=== PATIENT | female | born 1975 | race African-American/Black ===

== ENCOUNTER 2016-09-28 14:54 | Emergency (ER) | payer OTHER ==
[~2016-09-28] VITALS: Ht 170.2 cm; Wt 158.8 kg
[~2016-09-28 14:54] MED LIST: ASPIR 8181 MG PO; B COMPLEX1 EAC1 PO; CINNAMON500 MG PO; COLACE100 MG PO; CYMBALTA30 MG PO; CYMBALTA60 MG PO; GLUCOPHAGE1000 MG PO; GORDON'S VITE A75 GM TP; HUMALOG100 UNIT/1 SUBQ; HYDROCODONE-AP1 EAC6 PO; IRBESARTAN300 MG PO; LANTUS; LANTUS SUBQ; LANTUS100 UNIT/M SUBQ; LASIX; LEVAQUIN 500 M500 M2 PO; LEVEMIR100 UNIT/1 SUBQ; METFORMIN HCL500 MG PO; MIRALAX17 GM PO; NORCO 5-325 TA1 EACH PO; NORFLEX100 MG; NORFLEX100 MG PO; NORVASC10 MG PO; NOVOLOG100 UNIT/1 SUBQ; PIOGLITAZONE15 MG; PREDNISONE 20 M20 M1 PO; PRILOSEC20 MG PO; PROVENTIL HFA6.7 G1 INH; TOPROL XL50 MG PO; VITAMIN D 5050000 I1 PO; WELLBUTRIN XL300 MG PO
[2016-09-28] MEDS ORDERED: NEURONTIN600 MG PO (15:17)
[2016-09-28] MEDS ORDERED: TRESIBA FL200 UNIT/1 SQ (15:19)
[2016-09-28] MEDS ORDERED: LASIX 40 MG TAB40 M2 PO (15:20)
[2016-09-28] MEDS ORDERED: POTASSIUM20 PO (15:21)
[2016-09-28] MEDS ORDERED: VIBERZI100 MG PO (15:22)
[2016-09-28] MEDS ORDERED: PROTONIX40 M1 PO (15:22)
[2016-09-28] MEDS ORDERED: LORZONE750 MG PO (15:24)
[2016-09-28] MEDS ORDERED: NORFLEX100 MG PO (15:39)
[2016-09-28] MEDS ORDERED: NAPROSYN500 MG PO (15:39)
== END 2016-09-28 16:03 | disposition home or self-care (01) ==
LOC: ER 14:54
DX: S46.912A Strain of unspecified muscle, fascia and tendon at shoulder and upper arm level, left arm, initial encounter (principal); Z90.710 Acquired absence of both cervix and uterus; Z98.890 Other specified postprocedural states; Z88.1 Allergy status to other antibiotic agents; Z91.040 Latex allergy status; Z88.8 Allergy status to other drugs, medicaments and biological substances; V89.2XXA Person injured in unspecified motor-vehicle accident, traffic, initial encounter; Y93.I9 Activity, other involving external motion; Y92.415 Exit ramp or entrance ramp of street or highway as the place of occurrence of the external cause; Y99.8 Other external cause status

== ENCOUNTER → 2017-01-24 | Outpatient (CLI) | payer OTHER ==
[~2017-01-24] MED LIST changes: +LASIX 40 MG TAB40 M2 PO; +LORZONE750 MG PO; +NAPROSYN500 MG PO; +NEURONTIN600 MG PO; +POTASSIUM20 PO; +PROTONIX40 M1 PO; +TRESIBA FL200 UNIT/1 SQ; +VIBERZI100 MG PO
== END ==
LOC: RAD 15:26
DX: R06.02 Shortness of breath (principal); R06.09 Other forms of dyspnea

== ENCOUNTER 2017-04-14 09:14 | Inpatient (IN) | payer OTHER ==
--- NOTE | ~2017-04-14 | P ---
[facility] [place] [place] [address] PROCEDURE REPORT Name: NAIN SCHMIDT Room #: 209-P [facility] IN M.R.#: [id number] Admission: 04/14/17 Attend Phys: Escobar Elder DO Discharge: 04/15/17 Date of : 71 Report #: [id number] THIS REPORT FOR: //name// CC: Escobar Baigen [facility] DATE OF SERVICE: 04/15/2017 PROCEDURE PERFORMED: Flexible sigmoidoscopy. HISTORY OF PRESENT ILLNESS: The patient is a 41-year-old female with recent bright red blood per rectum apparently had a colonoscopy a year ago that was negative. She does have irritable bowel syndrome, diarrhea dependent and takes Viberzi, which seems to be helpful. Plan is for a flexible sigmoidoscopy. DESCRIPTION OF PROCEDURE: The risks and benefits of the procedure were explained to the patient, those risks including but not limited to bleeding, perforation and the risk of sedation. She understood these risks and gave informed consent. Sedation was given using ketamine and propofol per anesthesia. Next, a digital rectal exam was initially performed, which was normal. Next, using a standard Precoginon colonoscope, the scope was placed in the patient's anus and advanced under direct vision to the transverse colon. The overall prep was excellent. The transverse, descending and sigmoid colon were all normal. Because of the patient's history of diarrhea, random biopsies were obtained to rule out the possibility of microscopic colitis. The rectal mucosa was normal. On retroflexion, a single internal hemorrhoid, nonbleeding was noted. Close examination of the anal canal showed a small anal fissure. No active bleeding at this time. The scope was then withdrawn and the procedure terminated. The patient tolerated the procedure well. IMPRESSION: 1. Small anal fissure likely source of recent bright red blood per rectum. 2. Internal hemorrhoids. 3. Otherwise, normal flexible sigmoidoscopy. RECOMMENDATIONS: 1. High fiber diet. 2. Analpram 2.5% b.i.d. for 2 weeks and then on a p.r.n. basis. Thank you for allowing me to participate in her care. By: 1127 18 Leland Grey MD /ivonne
--- NOTE | ~2017-04-14 | S ---
[facility] [place] [address] SURGICAL PATH RPT PROCEDURE Name: NAIN WARD MIHAELA Room #: 209-P DIS IN M.R.#: [id number] Admission: 04/14/17 Date of : 71 Discharge: 04/15/17 Report #: [id number] Path Case #: [id number] PATHOLOGY REPORT COLLECTION DATE: 04/15/2017 RECEIVED DATE: 04/15/2017 SUBMITTING PHYS: Dr. Leland Grey OTHER PHYS: Dr. Escobar Parker SPECIMEN(S) RECEIVED: A.Random colon bx to R/O microscopic colitis * * * * * * * * * * * * FINAL DIAGNOSIS: Large intestinal mucosa, random, rule out microscopic colitis, endoscopic biopsy: - Mild to moderate active colitis involving all fragments sampled. - Negative for dysplasia. COMMENT: Examination shows a markedly expanded lamina propria with a mixed inflammatory infiltrate. There is surface epithelial acute inflammation, cryptitis, crypt abscess formation as well as a rare focus of ulceration. All fragments sampled show a similar degree intensity of inflammation. Architectural abnormalities are not obvious. There are no viral inclusions, parasitic organisms, or well-formed granulomata identified. Overall findings may be suggestive of an acute ongoing colitis, infectious-type of colitis, medication induced colitis, acute diverticulitis, as well as early inflammatory bowel disease. There is no dysplasia or malignancy present. Please correlate clinically. (IUV:elizabeth; 04/18/2017) PATHOLOGIST: Amaya Esparza M.D. REPORT ELECTRONICALLY SIGNED BY: Amaya Esparza M.D. DATE/TIME: 04/18/2017 14:47 * * * * * * * * * * * * GROSS PATHOLOGY: Received in formalin labeled "Nain Ward, random BX of colon to r/o microscopic colitis," are 4 segments of ely soft tissue measuring 1.8 x 0.6 x 0.3 cm in aggregate dimensions and ranging from 0.3 to 0.8 cm in maximum dimension. The specimen is submitted entirely in cassette A1. (TSD; 04/15/2017) [address] [address] [place] [address] SURGICAL PATH RPT PROCEDURE Name: NAIN WARD MIHAELA Room #: 209-P DIS IN M.R.#: [id number] Admission: 04/14/17 Date of : 71 Discharge: 04/15/17 Report #: [id number] Path Case #: [id number] CLINICAL HISTORY: GI rectal bleed INITIAL CPT CODE(S): A; 01982 Professional services performed by [facility] at [facility] [address] [place] [address] Technical services performed by [facility] at [address] [place] [address], [facility] [address] [address]. [facility] [address] [address] PHONE: [phone] DIRECTOR: Casa Paredes M.D. * * * END OF REPORT * * *
--- NOTE | ~2017-04-14 | EKG ---
[address] [address] ELECTROCARDIOGRAM REPORT Name: NAIN SCHMIDT Room #: 209- ADM IN M.R.#: [id number] Admission: 04/14/17 Attend Phys: Justen Mclaughlin Discharge: Date of : 71 Report #: [id number] THIS REPORT FOR: //name// [facility] Test Date: 2017-04-14 Test Time: 10:48:20 Pat Name: NAIN SCHMIDT Department: Room: 209 Gender: F Hair Assistant: Norma QUINONEZ : 1975 Requested By: Roxy Alcantar Order Number: [id number] MD: Jai Jeffers Measurements Intervals [place] Rate: 77 P: 46 DE: 152 QRS: 16 QRSD: 89 T: 58 QT: 391 QTc: 443 Interpretive Statements Sinus rhythm Borderline T wave abnormalities Compared to ECG 09/22/2014 13:18:49 No significant changes Electronically Signed On 04-14-2017 17:11:43 TOE STAPLER by Jai Jeffers [email or web address] <ELECTRONICALLY SIGNED> By: Jai Jeffers MD, [facility] 04/14/17 1711 1048 1048 Jai Jeffers MD, [facility] /EPI
[2017-04-14 09:30] VITALS: BP 161/113
[2017-04-14 10:37] LABS: ABSOLUTE NEUTROPHILS 5.3 thou/uL (1.4-8.2); BASOPHILS 0.2 % (0.0-2.0); EOSINOPHILS 1.1 % (0.0-3.0); HEMATOCRIT 32.2 % (37.0-47.0); HEMOGLOBIN 10.1 gm/dL (12.0-15.0); LYMPHOCYTES 18.4 % (24.0-44.0); MCH 25.1 pg (26.0-34.0); MCHC 31.6 g/dL (28.0-37.0); MCV 79.5 fL (80.0-100.0); MONOCYTES 6.8 % (1.0-8.0); PLATELET COUNT 328 thou/uL (150-400); POLYS 73.5 % (36.0-66.0); RBC 4.05 mil/uL (4.20-5.00); RDW 17.5 % (10.5-14.5); WBC 7.3 thou/uL (4.0-11.0)
[2017-04-14 10:38] LABS: MANUAL DIFF NO
[2017-04-14 10:51] LABS: CALCIUM 9.1 mg/dL (8.5-10.1); CREATININE 0.9 mg/dL (0.6-1.0); POTASSIUM 3.8 mmol/L (3.5-5.1)
[2017-04-14 10:53] LABS: PROTIME 9.3 Seconds (9.3-11.4)
[2017-04-14 10:57] LABS: ALBUMIN 2.7 g/dL (3.4-5.0); MAGNESIUM 1.8 mg/dL (1.8-2.4); TOTAL BILIRUBIN 0.3 mg/dL (<0.1-1.0); TOTAL PROTEIN 7.2 g/dL (6.4-8.2)
[2017-04-14 12:00] VITALS: BP 153/93
[2017-04-14 16:00] VITALS: BP 153/90
[2017-04-14 19:19] VITALS: BP 16/108
[2017-04-14 20:05] LABS: URINE BILIRUBIN NEGATIVE (Negative); URINE BLOOD TRACE (Negative); URINE COLOR YELLOW; URINE GLUCOSE-RANDOM* NEGATIVE (Negative); URINE KETONES NEGATIVE (Negative); URINE NITRITE NEGATIVE (Negative); URINE PROTEIN (DIPSTICK) NEGATIVE (Negative); URINE UROBILINOGEN 0.2 E.U./dl (0.2-1.0)
[2017-04-15 00:35] VITALS: BP 156/96
[2017-04-15 04:03] LABS: ABSOLUTE NEUTROPHILS 2.7 thou/uL (1.4-8.2); EOSINOPHILS 4.3 % (0.0-3.0); HEMATOCRIT 30.6 % (37.0-47.0); HEMOGLOBIN 9.7 gm/dL (12.0-15.0); MCH 25.2 pg (26.0-34.0); MCHC 31.6 g/dL (28.0-37.0); MCV 79.8 fL (80.0-100.0); MONOCYTES 9.4 % (1.0-8.0); PLATELET COUNT 305 thou/uL (150-400); POLYS 51.3 % (36.0-66.0); RBC 3.83 mil/uL (4.20-5.00); RDW 18.1 % (10.5-14.5); WBC 5.3 thou/uL (4.0-11.0)
[2017-04-15 04:07] LABS: MANUAL DIFF NO
[2017-04-15 04:26] LABS: CALCIUM 8.9 mg/dL (8.5-10.1); CREATININE 0.9 mg/dL (0.6-1.0); MAGNESIUM 1.7 mg/dL (1.8-2.4); POTASSIUM 3.7 mmol/L (3.5-5.1)
[2017-04-15 04:30] VITALS: BP 141/83
[2017-04-15 07:42] VITALS: BP 174/105
[2017-04-15 12:10] VITALS: BP 152/102
[2017-04-15 13:36] VITALS: BP 174/105
== END 2017-04-15 14:08 | disposition home or self-care (01) | DRG 394 ==
LOC: 2N 09:14
PROVIDERS: Nurse Practitioner
PROC: 0DBE8ZX Excision of Large Intestine, Via Natural or Artificial Opening Endoscopic, Diagnostic (ICD-10-PCS; principal; 2017-04-15)
DX: K60.2 Anal fissure, unspecified (principal); K92.2 Gastrointestinal hemorrhage, unspecified; I10 Essential (primary) hypertension; E11.9 Type 2 diabetes mellitus without complications; K58.9 Irritable bowel syndrome, unspecified; E66.01 Morbid (severe) obesity due to excess calories; I25.10 Atherosclerotic heart disease of native coronary artery without angina pectoris; E78.5 Hyperlipidemia, unspecified; K64.8 Other hemorrhoids; Z88.1 Allergy status to other antibiotic agents; Z88.8 Allergy status to other drugs, medicaments and biological substances; Z90.710 Acquired absence of both cervix and uterus; Z91.040 Latex allergy status
CPT/HCPCS: 10797

== ENCOUNTER → 2017-06-01 | Outpatient (CLI) | payer OTHER ==
[~2017-06-01] MED LIST changes: +AMITRIPTYLINE H25 M2 PO; +ANUSOL-HC25 MG RECTAL; +CELEXA20 MG PO; +COMBIVENT RESPIM4 GM INH; +DULERA 100 MCG/13 GM INH; +ERGOCALCIF50000 UNIT PO; +FLAX SEED OIL1000 MG PO; +FLONASE 0.05%50 MCG NASAL; +HYDRALAZINE 2525 MG PO; +HYDROXYZINE HCL25 M1 PO; +IBUPROFEN 600600 M1 PO; +IMITREX100 MG PO; +MACROBID 100 M100 M1 PO; +METHADONE HCL 110 M1 PO; +NEURONTIN 300300 M1 PO; +SINGULAIR 10 MG10 M1 PO; +TRESIBA FL200 UNIT/1 SUBQ; +UNICOMPLEX M TA1 TA1 PO; +VICTOZA0.6 MG/0.1 SUBQ; +VITAMIN D2000 UNIT PO; +XANAX 0.5 MG0.5 MG PO; +ZANAFLEX4 MG PO
--- NOTE | ~2017-06-01 | 2DMMODE ---
[facility] [place] [address] 2 D/M-MODE ECHOCARDIOGRAM Name: NAIN SCHMIDTLENE Room #: REG CL [facility]#: [id number] Admission: 06/01/17 Attend Phys: Porfirio Choudhary Discharge: Date of : 71 Date of Service: 06/01/17 1706 Report #: [id number] THIS REPORT FOR: //name// APPROVED REPORT Study performed: 06/01/2017 14:17:50 EXAM: Comprehensive 2D, Doppler, and color-flow Echocardiogram Patient Location: Out-Patient Room #: Echo lab Status: routine BSA: 2.63 HR: 80 bpm BP: 162/94 mmHg Other Information Study Quality: Poor Technically limited study due to body habitus, inability to position patient, no IV access obtainable to use Optison.. Indications Dyspnea Hypertension/HDD Aortic Valve AoV Peak Bret.: 1.75 m/s AO Peak Gr.: 12.25 mmHg LVOT Max P.88 mmHg LVOT Max V: 0.98 m/s Mitral Valve E/A Ratio: 0.9 MV Decel. Time: 241.51 ms MV E Max Bret.: 0.82 m/s MV A Bret.: 0.96 m/s MV PHT: 70.04 ms IVRT: 110.73 ms Pulmonary Valve PV Peak Bret.: 0.84 m/s PV Peak Gr.: 2.79 mmHg Pulmonary Vein P Vein S: 0.53 m/s P Vein A: 0.30 m/s P Vein D: 0.32 m/s P Vein A Dur.: 115.3 msec P Vein S/D Ratio: 1.66 [facility] [place] [address] 2 D/M-MODE ECHOCARDIOGRAM Name: NAIN SCHMIDT MIHAELA Room #: REG [facility]#: [id number] Admission: 06/01/17 Attend Phys: Porfirio Choudhary Discharge: Date of : 71 Date of Service: 06/01/17 1706 Report #: [id number] Left Ventricle Left ventricle is grossly normal size. Regional wall motion abnormalities cannot be excluded. The overall left ventricular systolic function appears normal. LVEF is 55-60%. Grade I - abnormal relaxation pattern. Right Ventricle Right ventricle is not well visualized. Atria The left atrium size is normal. The right atrium size is normal. Aortic Valve Aortic valve is not well visualized. No aortic regurgitation is present. There is no aortic valvular stenosis. Mitral Valve Mitral valve is not well visualized. There is no mitral valve regurgitation noted. No evidence of mitral valve stenosis. Tricuspid Valve Tricuspid valve is not well visualized. There is no tricuspid valve regurgitation noted. Pulmonic Valve The pulmonary valve is normal in structure. There is no pulmonic valvular regurgitation. Great Vessels The aortic root is normal in size. The inferior vena cava is not visualized. Pericardium There is no pericardial effusion. <Conclusion> Very limited study The overall left ventricular systolic function appears normal. Regional wall motion abnormalities cannot be excluded. LVEF 55-60%. Grade I diastolic dysfunction Aortic valve is not well visualized. No aortic regurgitation or stenosis Mitral valve is not well visualized. No mitral valve regurgitation [facility] [address] 2 D/M-MODE ECHOCARDIOGRAM Name: NAIN SCHMIDT MIHAELA Room #: REG [facility]#: [id number] Admission: 06/01/17 Attend Phys: Porfirio Choudhary Discharge: Date of : 71 Date of Service: 06/01/171705 Report #: [id number] noted. There is no pericardial effusion. <ELECTRONICALLY SIGNED> By: Jai Jeffers MD, FACC 06/01/171705 05 05 Jai Jeffers MD, FACC /INF
== END ==
LOC: CV 11:06
DX: I10 Essential (primary) hypertension (principal)

== ENCOUNTER → 2017-06-04 | Outpatient (CLI) | payer OTHER | LOC: SLEEPLAB 05-24 10:02 | DX: G47.33 Obstructive sleep apnea (adult) (pediatric) (principal) ==

== ENCOUNTER → 2017-06-10 | Outpatient (CLI) | payer OTHER ==
[2017-06-10 13:09] LABS: HEMATOCRIT 34.8 % (37.0-47.0); HEMOGLOBIN 11.3 gm/dL (12.0-15.0); MCH 25.1 pg (26.0-34.0); MCHC 32.5 g/dL (28.0-37.0); MCV 77.4 fL (80.0-100.0); RBC 4.5 mil/uL (4.20-5.00); RDW 18.5 % (10.5-14.5); WBC 8.2 thou/uL (4.0-11.0)
[2017-06-10 13:19] LABS: CREATININE 0.8 mg/dL (0.6-1.0)
== END ==
LOC: CAT 12:37
PROVIDERS: Neuromusculoskeletal Medicine & OMM
DX: I26.99 Other pulmonary embolism without acute cor pulmonale (principal); G47.33 Obstructive sleep apnea (adult) (pediatric); J45.40 Moderate persistent asthma, uncomplicated; R91.1 Solitary pulmonary nodule; E78.5 Hyperlipidemia, unspecified; I10 Essential (primary) hypertension; E11.40 Type 2 diabetes mellitus with diabetic neuropathy, unspecified; Z98.890 Other specified postprocedural states; Z90.710 Acquired absence of both cervix and uterus

== ENCOUNTER → 2017-06-21 | Outpatient (CLI) | payer OTHER | LOC: ULTRA 14:52 | DX: I82.622 Acute embolism and thrombosis of deep veins of left upper extremity (principal); Z87.828 Personal history of other (healed) physical injury and trauma ==

== ENCOUNTER 2017-06-30 21:04 | Emergency (ER) | payer OTHER ==
[~2017-06-30] VITALS: Ht 170.2 cm; Wt 167.8 kg
[~2017-06-30 21:04] MED LIST changes: -AMITRIPTYLINE H25 M2 PO; -ANUSOL-HC25 MG RECTAL; -CELEXA20 MG PO; -COMBIVENT RESPIM4 GM INH; -DULERA 100 MCG/13 GM INH; -ERGOCALCIF50000 UNIT PO; -FLAX SEED OIL1000 MG PO; -FLONASE 0.05%50 MCG NASAL; -HYDRALAZINE 2525 MG PO; -HYDROXYZINE HCL25 M1 PO; -IBUPROFEN 600600 M1 PO; -IMITREX100 MG PO; -MACROBID 100 M100 M1 PO; -METHADONE HCL 110 M1 PO; -NEURONTIN 300300 M1 PO; -SINGULAIR 10 MG10 M1 PO; -TRESIBA FL200 UNIT/1 SUBQ; -UNICOMPLEX M TA1 TA1 PO; -VICTOZA0.6 MG/0.1 SUBQ; -VITAMIN D2000 UNIT PO; -XANAX 0.5 MG0.5 MG PO; -ZANAFLEX4 MG PO
[2017-06-30 21:14] VITALS: BP 172/97
[2017-06-30] MEDS ORDERED: NEURONTIN 300300 M1 PO (21:26)
[2017-06-30] MEDS ORDERED: VITAMIN D2000 UNIT PO (21:26)
[2017-06-30] MEDS ORDERED: ERGOCALCIF50000 UNIT PO (21:26)
[2017-06-30] MEDS ORDERED: TRESIBA FL200 UNIT/1 SUBQ (21:28)
[2017-06-30 21:34] LABS: URINE BILIRUBIN NEGATIVE (Negative); URINE BLOOD NEGATIVE (Negative); URINE CLARITY SL CLOUDY; URINE COLOR YELLOW; URINE GLUCOSE-RANDOM* NEGATIVE (Negative); URINE KETONES TRACE (Negative); URINE LEUKOCYTES-REFLEX TRACE (Negative); URINE NITRITE-REFLEX NEGATIVE (Negative); URINE PROTEIN (DIPSTICK) NEGATIVE (Negative); URINE SPECIFIC GRAVITY >= 1.030 (1.005-1.035); URINE UROBILINOGEN 0.2 E.U./dl (0.2-1.0)
[2017-06-30] MEDS ORDERED: ANUSOL-HC25 MG RECTAL (23:22)
[2017-06-30] MEDS ORDERED: MACROBID 100 M100 M1 PO (23:22)
[2018-03-01] MEDS ORDERED: FLAX SEED OIL1000 MG PO (15:20)
[2018-03-01] MEDS ORDERED: FLONASE 0.05%50 MCG NASAL (15:21)
[2018-03-01] MEDS ORDERED: VICTOZA0.6 MG/0.1 SUBQ (15:24)
[2018-03-01] MEDS ORDERED: SINGULAIR 10 MG10 M1 PO (15:30)
[2018-03-01] MEDS ORDERED: DULERA 100 MCG/13 GM INH (15:30)
[2018-03-01] MEDS ORDERED: IMITREX100 MG PO (15:32)
[2018-03-01] MEDS ORDERED: UNICOMPLEX M TA1 TA1 PO (15:32)
[2018-03-01] MEDS ORDERED: ZANAFLEX4 MG PO (15:33)
[2018-03-01] MEDS ORDERED: HYDRALAZINE 2525 MG PO (15:34)
[2018-03-01] MEDS ORDERED: XANAX 0.5 MG0.5 MG PO (15:34)
[2018-03-01] MEDS ORDERED: HYDROXYZINE HCL25 M1 PO (15:35)
[2018-03-01] MEDS ORDERED: CELEXA20 MG PO (15:37)
[2018-03-01] MEDS ORDERED: AMITRIPTYLINE H25 M2 PO (15:42)
[2018-03-01] MEDS ORDERED: METHADONE HCL 110 M1 PO (15:42)
[2018-03-01] MEDS ORDERED: COMBIVENT RESPIM4 GM INH (15:47)
== END 2017-06-30 23:25 | disposition home or self-care (01) ==
LOC: ER 21:04
PROVIDERS: Physician Assistant
DX: K60.2 Anal fissure, unspecified (principal); N39.0 Urinary tract infection, site not specified; Z90.710 Acquired absence of both cervix and uterus; Z88.1 Allergy status to other antibiotic agents; Z88.8 Allergy status to other drugs, medicaments and biological substances; Z91.040 Latex allergy status

== ENCOUNTER → 2017-10-26 | Outpatient (CLI) | payer OTHER ==
[~2017-10-26] MED LIST changes: +ANUSOL-HC25 MG RECTAL; +ERGOCALCIF50000 UNIT PO; +MACROBID 100 M100 M1 PO; +NEURONTIN 300300 M1 PO; +TRESIBA FL200 UNIT/1 SUBQ; +VITAMIN D2000 UNIT PO
== END ==
LOC: ULTRA 13:56
DX: M79.601 Pain in right arm (principal); M79.89 Other specified soft tissue disorders

== ENCOUNTER 2017-11-14 08:34 | Emergency (ER) | payer OTHER ==
[~2017-11-14] VITALS: Ht 170.2 cm; Wt 165.6 kg
--- NOTE | ~2017-11-14 | EKG ---
[address] [address] [facility] [facility] [place] [place] [address] ELECTROCARDIOGRAM REPORT Name: NAIN SCHMIDT Room #: DEP [facility]#: [id number] Admission: 11/14/17 Attend Phys: Discharge: 11/14/17 Date of : 71 Report #: [id number] THIS REPORT FOR: //name// [facility] ED Test Date: 2017-11-14 Test Time: 08:45:28 Pat Name: NAIN SCHMIDT Department: Room: Gender: F Manager Body: KF : 1975 Requested By: Ry Onofre Order Number: [id number] MD: Jai Jeffers Measurements Intervals [place] Rate: 81 P: 65 WI: 154 QRS: -1 QRSD: 90 T: 45 QT: 409 QTc: 475 Interpretive Statements Sinus rhythm Borderline T wave abnormalities Baseline wander in lead(s) V1 Compared to ECG 04/14/2017 10:48:20 No significant changes Electronically Signed On 11-15-2017 14:04:54 CDT by Jai Jeffers [email or web address] <ELECTRONICALLY SIGNED> By: Jai Jeffers MD, [facility] 11/15/17 1404 4 Jai Jeffers MD, [facility] /EPI
[2017-11-14 09:39] LABS: ABSOLUTE NEUTROPHILS 4.9 thou/uL (1.4-8.2); BASOPHILS 0.6 % (0.0-2.0); EOSINOPHILS 2.1 % (0.0-3.0); HEMATOCRIT 34.9 % (37.0-47.0); HEMOGLOBIN 11.1 gm/dL (12.0-15.0); LYMPHOCYTES 20.9 % (24.0-44.0); MCH 25.3 pg (26.0-34.0); MCHC 31.7 g/dL (28.0-37.0); MCV 79.7 fL (80.0-100.0); PLATELET COUNT 379 thou/uL (150-400); POLYS 69.4 % (36.0-66.0); RBC 4.38 mil/uL (4.20-5.00); RDW 18.8 % (10.5-14.5); WBC 7.1 thou/uL (4.0-11.0)
[2017-11-14 09:48] LABS: ANION GAP 5 mmol/L (7-16); BUN 9 mg/dL (7-18); CALCIUM 9.7 mg/dL (8.5-10.1); CHLORIDE 102 mmol/L (98-107); CO2 30 mmol/L (21-32); CREATININE 0.8 mg/dL (0.6-1.0); GLUCOSE 172 mg/dL (74-106); POTASSIUM 3.8 mmol/L (3.5-5.1); SODIUM 137 mmol/L (136-145)
[2017-11-14 09:58] LABS: SGOT 17 U/L (15-37); SGPT 26 U/L (30-65); TOTAL BILIRUBIN 0.4 mg/dL (<0.1-1.0); TOTAL PROTEIN 7.9 g/dL (6.4-8.2); TROPONIN-I < 0.04 ng/mL (<0.06)
[2017-11-14] MEDS ORDERED: IBUPROFEN 600600 M1 PO (11:40)
[2017-11-14] MEDS ORDERED: HYDROCODONE-AP1 EAC6 PO (11:40)
== END 2017-11-14 12:05 | disposition home or self-care (01) ==
LOC: ER 08:34
PROVIDERS: Physician Assistant
DX: R07.89 Other chest pain (principal); R06.02 Shortness of breath; R20.0 Anesthesia of skin; M79.89 Other specified soft tissue disorders; Z90.710 Acquired absence of both cervix and uterus; E11.9 Type 2 diabetes mellitus without complications; Z88.1 Allergy status to other antibiotic agents; Z91.040 Latex allergy status; Z88.8 Allergy status to other drugs, medicaments and biological substances

== ENCOUNTER → 2018-01-05 | Outpatient (CLI) | payer OTHER ==
[~2018-01-05] MED LIST changes: +IBUPROFEN 600600 M1 PO
== END ==
LOC: MRI 12:29
DX: D35.2 Benign neoplasm of pituitary gland (principal); G93.9 Disorder of brain, unspecified

== ENCOUNTER → 2018-03-01 | Outpatient (CLI) | payer BC ==
[~2018-03-01] VITALS: Ht 170.2 cm; Wt 168.4 kg
[~2018-03-01] MED LIST changes: +AMITRIPTYLINE H25 M2 PO; +CELEXA20 MG PO; +COMBIVENT RESPIM4 GM INH; +DULERA 100 MCG/13 GM INH; +FLAX SEED OIL1000 MG PO; +FLONASE 0.05%50 MCG NASAL; +HYDRALAZINE 2525 MG PO; +HYDROXYZINE HCL25 M1 PO; +IMITREX100 MG PO; +METHADONE HCL 110 M1 PO; +SINGULAIR 10 MG10 M1 PO; +UNICOMPLEX M TA1 TA1 PO; +VICTOZA0.6 MG/0.1 SUBQ; +XANAX 0.5 MG0.5 MG PO; +ZANAFLEX4 MG PO
--- NOTE | ~2018-03-01 | HPC ---
[facility] [place] [address] PAIN MANAGEMENT CONSULTATION Name: NAIN SCHMIDT Room #: REG MASSIEL CookCarlitosBreannaCarlitos#: [id number] Admission: 03/01/18 Attend Phys: Tj Hernandez MD Discharge: Date of : 71 Report #: [id number] THIS REPORT FOR: //name// CC: Tj Parker DATE OF SERVICE: 03/01/2018 CHIEF COMPLAINT: Pain in the right arm, neck and down into the hands. HISTORY OF PRESENT ILLNESS: The patient is a 42-year-old female who has been referred to the pain clinic because of pain and discomfort involving her neck, shoulder, which has been problematic since 09/27/2013. The patient has noted some worsening of pain and discomfort involving her right arm. States that she did have an episode of shingles, which broke out on her arm. She notes that this area is hypersensitive to light touch and to discomfort. States that the rash that was on her right arm has dried. She notes that her right arm is somewhat weaker than the left. Describes her pain and discomfort as a 10/10. States that she does work and uses a keyboard. This could make her pain much worse. Notes that the pain is exacerbated with movement of her right arm and shoulder area. She also has pain and discomfort in the right shoulder. She is unable to wear a bra. This significantly exacerbates her pain. Note some pain and discomfort in the area of the right breast underneath the breast. ALLERGIES: LISINOPRIL, TETRACYCLINE; CLINDAMYCIN; CLAVULANIC ACID/AUGMENTIN; LATEX ALLERGY/SENSITIVITY; METOPROLOL, DIFFICULTY BREATHING IN 2015; TETRACYCLINE, ITCHING AND HIVES IN 2015; LISINOPRIL, COUGH IN 2015, INSULIN GLARGINE; AND LYRICA CAUSE SWELLING. MEDICATIONS: Combivent inhaler spray 1 puff 4 times daily, Celexa 20 mg, hydroxyzine 25 mg t.i.d., hydralazine 25 mg t.i.d., alprazolam 0.5 mg t.i.d., tizanidine 4 mg b.i.d., Imitrex 100 mg p.r.n., multivitamin, Singulair 10 mg at bedtime, 100 mcg/5 mcg inhaler b.i.d., Victoza 0.6 mg injection subq, nasal Flonase 0.05% b.i.d., flaxseed oil 1000 mg, gabapentin 300 mg q.i.d., vitamin D3, vitamin D 2000 units, Drisdol 50,000 units, Viberzi 100 mg b.i.d., insulin 100 units, 30 units subq t.i.d., Irbesartan 300 mg daily, aspirin 81 mg chewable Lyrica. PAST MEDICAL HISTORY: 1. Diabetes. 2. Epilepsy/seizures. 3. Asthma. 4. Hypertension. 5. Stomach problems. 6. Emotional problems. 7. Shingles. [facility] [address] [place] [address] PAIN MANAGEMENT CONSULTATION Name: NAIN SCHMIDT Room #: ROBIN MASSIEL Pope#: [id number] Admission: 03/01/18 Attend Phys: Tj Hernandez MD Discharge: Date of : 71 Report #: [id number] 8. Pituitary tumor. 9. Migraine headaches. PAST SURGICAL HISTORY: 1. Three C-sections, 11/1999, 04/1994, 05/2001. 2. Hysterectomy, 10/2003. 3. Lump removed, 02/2015. 4. 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 SOCIAL HISTORY: The patient worked as a customer support assistant. REVIEW OF SYSTEMS: Generally good health, fatigue, weakness, headaches, wears glasses, ear aches, drainage, nose bleeds soreness of throat, shortness of breath, chest pain, shortness of breath while walking, lying flat, asthma, wheezing, abdominal pain, rash/itching frequent headaches, lightheadedness, numbness and tingling, tremors, depression, insomnia, thyroid disease, excessive thirst, heat or cold intolerance. LABORATORY DATA: MRI of the cervical spine dated 12/20/2017. 1. C3-C4, there is no significant disk bulge or protrusion identified. There is no significant right neural foraminal stenosis. There is mild to moderate left neural foraminal stenosis and facet arthrosis. 2. C4-C5, there is no significant disk bulge or a protrusion identified. There is no significant central canal stenosis or right-sided neural foraminal stenosis. There is moderate left foraminal stenosis due to uncovertebral and facet arthrosis. 3. C5-C6, there is no significant disk bulge or protrusion identified. There is no significant central spinal canal or right-sided neural foraminal stenosis. There is mild left neural foraminal stenosis due to uncovertebral and facet arthrosis. 4. C6-C7, there is no significant disk bulge or protrusion identified. There is no significant central canal or neural foraminal stenosis. IMPRESSION: [id number] left-sided neural foraminal stenosis to uncovertebral and facet arthrosis. Enlargement of the sella turcica with soft tissue intensity within the sella turcica concerning for mass. 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 PAIN CLINIC ASSESSMENT/PQRS: 1. History of osteoarthritis. The patient is not being treated for osteoarthritis or rheumatoid arthritis. 2. Height 5 feet 7 inches. Weight 374 pounds, BMI is 58.1. 3. Vital Signs: Blood pressure 186/113, pulse 100, respiratory rate 16, room air saturation is 98%. 4. Pain intensity 10/10. [facility] [address] [place] [address] PAIN MANAGEMENT CONSULTATION Name: NAIN SCHMIDT Room #: REG [facility]#: [id number] Admission: 03/01/18 Attend Phys: Tj Hernandez MD Discharge: Date of : 71 Report #: [id number] 5. Fall risk. The patient has not fallen in the last 3 months. 6. Blood thinner. The patient is not on a blood thinning medication. 7. Hypertension. The patient is being treated for hypertension. 8. Opioid therapy greater than 6 weeks. The patient is not on her opioid regimen. 9. Risk assessment tool. 10. Functional assessment tool. 11. Recreational drug use. The patient denies use of recreational drugs. Did try CBD oil. 12. Tobacco. The patient is current every day smoker. 13. Alcohol: The patient denies frequent use of alcoholic beverages. PHYSICAL EXAMINATION: GENERAL: The patient is a well-developed, obese black female, appears her stated age. She is alert and oriented x 3. Affect is appropriate. Speech is fluent. HEENT: Normocephalic, atraumatic. Extraocular eye muscles intact. The patient states she does have a little bit of fuzzy haze around her visual valencia. Mucous membranes are moist. Hearing is within normal limits. HEART: Distant tones, regular rate. LUNGS: Clear to auscultation, distant without rhonchi or rales. ABDOMEN: Protuberant. Bowel sounds present. EXTREMITIES: Upper extremity muscle strength is 5/5 on the left. The patient complains of some increase in hypersensitive areas on her right arm and shoulder. She does not have a bra on because of the pain associated with wearing a bra and the pressure on her shoulder. Complains of pain in the right area underneath her right bra/breast area. The patient has some dried well-healed lesions on her right shoulder. She states that this was secondary to shingles which has dried and is resolved. Notes some decreased continuous wave operator strength in her right arm. States that she has been dropping things at home when she is trying to lift them. Lower extremity muscle strength is judged to be 5/5 for the major muscle groups without complaining neurological changes. The patient without significant scoliosis, kyphosis or lordosis. IMPRESSION: Clinical findings consistent with cervical radiculopathy with pain radiating down into the right arm, hand involving the fingers. RECOMMENDATIONS: We discussed treatment options with the patient. Risks and benefits of an epidural steroid injection were discussed. Possible complications of the procedure were reviewed. At this juncture, the patient is considering undergoing surgery in the hypothalamic area. We will have her contact her surgeon at . We will see whether or not he feels that it is too soon/to close to her surgery to undergo a cervical epidural steroid injection. If she does, she will return to the pain clinic at which time she will undergo treatment. We have discussed the benefits of a cervical block. Oftentimes when the patient's have pain and discomfort secondary to shingles. [facility] [address] [place] [address] PAIN MANAGEMENT CONSULTATION Name: NAIN SCHMIDT Room #: REG [facility] Toshia#: [id number] Admission: 03/01/18 Attend Phys: Tj Hernandez MD Discharge: Date of : 71 Report #: [id number] ganglion block could be beneficial. Given by the patient's body habitus, this would be quite difficult and we will not be able to perform the block at this juncture. She will call us if she has any concerns or complaints. We would like to thank you for letting us participate in her care. We hope she continues to improve. <ELECTRONICALLY SIGNED> By: Tj Hernandez MD 03/13/18 1124 [id number] [id number] Tj Hernandez MD /nt
[2018-03-01 14:22] VITALS: BP 186/113
== END ==
LOC: PAIN 02-08 06:47
DX: G89.29 Other chronic pain (principal); I10 Essential (primary) hypertension; M54.2 Cervicalgia; M25.519 Pain in unspecified shoulder; Z79.899 Other long term (current) drug therapy

== ENCOUNTER → 2018-03-03 | Outpatient (CLI) | payer BC ==
[~2018-03-03] VITALS: Ht 170.2 cm; Wt 168.3 kg
--- NOTE | ~2018-03-03 | HPC ---
[facility] [place] [address] PAIN MANAGEMENT CONSULTATION Name: NAIN SCHMIDT Room #: REG AMSSIEL WernerCarlitos#: [id number] Admission: 03/03/18 Attend Phys: Tj Hernandez MD Discharge: Date of : 71 Report #: [id number] THIS REPORT FOR: //name// CC: Tj Parker DATE OF SERVICE: 03/03/2018 FOLLOWUP COMPLAINT: Here for an injection. HISTORY OF PRESENT ILLNESS: The patient is a 42-year-old female who has been referred to the Pain Clinic because of pain and discomfort involving her neck. She has been having some problems with pain radiating down into her shoulders. She has noticed a worsening of her pain in the right shoulder. Notes some numbness and tingling. Feels that there is weakness in her right hand. 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 Rates her pain as a 10/10. Does work and use of a keyboard. Notes that this exacerbates pain and discomfort, which she is having. The patient also has a history of shingles involving her right arm, right breast area, and right shoulder. ALLERGIES: LISINOPRIL, TETRACYCLINE, CLINDAMYCIN, CLAVULANIC ACID/AUGMENTIN, LATEX, ALLERGY/SENSITIVITY, METOPROLOL, DIFFICULTY BREATHING IN 2015, TETRACYCLINE, ITCHING AND HIVES IN 2015, LISINOPRIL, COUGH IN 2015, INSULIN GLARGINE, AND LYRICA CAUSES SWELLING. MEDICATIONS: Combivent inhaler 1 puff q.i.d., Celexa 20 mg, hydroxyzine 25 mg t.i.d., hydralazine 25 mg t.i.d., alprazolam 0.5 mg t.i.d., tizanidine 4 mg b.i.d., Imitrex 100 mg p.r.n., multivitamin, Singulair 10 mg at bedtime, inhaler b.i.d., Victoza 0.6 mg injection subq, nasal Flonase ____ b.i.d., flaxseed oil 1000 mg, gabapentin 300 mg q.i.d., vitamin D3, vitamin D 2000 units, Drisdol 50,000 units, Viberzi 100 mg b.i.d., insulin 100 units, 30 units subq t.i.d., irbesartan 300 mg daily, aspirin 81 mg, Lyrica. PAIN CLINIC ASSESSMENT/PQRS: 1. History of osteoarthritis. The patient is not being treated for osteoarthritis or rheumatoid arthritis. 2. Height 5 feet 7 inches, weight 371 pounds, BMI is 58. 3. Vital signs: Blood pressure 158/105, pulse 82, respiratory rate 20, room air saturation is 98%. 4. Pain intensity 8/10. 5. Fall risk. The patient has not fallen in the last 3 months. 6. Blood thinner. The patient is not on a blood thinning medication. 7. Hypertension. The patient is being treated for hypertension. 8. Opioid medications greater than 6 weeks. [place] [address] PAIN MANAGEMENT CONSULTATION Name: NAIN SCHMIDT Room #: REG [facility]#: [id number] Admission: 03/03/18 Attend Phys: Tj Hernandez MD Discharge: Date of : 71 Report #: [id number] regimen greater than 6 weeks. 9. Risk assessment tool, low for opioid use. 10. Functional assessment tool. 11. Recreational drug use. The patient denies use of recreational drugs. 12. Tobacco: The patient does smoke tobacco. We discussed its use. 13. Alcohol: The patient denies frequent use of alcoholic beverages. PHYSICAL EXAMINATION: GENERAL: The patient is well-developed, well-nourished obese black female, appears her stated age. She is alert and oriented x 3. Affect is appropriate. Speech is fluent. HEENT: Normocephalic, atraumatic. Extraocular eye muscles are intact. Sclerae nonicteric. The patient does note some fuzzy haze around her visual valencia. Mucous membranes are moist. Hearing is within normal limits. HEART: Distant tones, regular rate. LUNGS: Clear to auscultation, distant without rhonchi or rales. ABDOMEN: Protuberant. Bowel sounds present. EXTREMITIES: Upper extremity muscle strength is judged to be 5/5 on the left. The patient notes some 4+/5 on the right, secondary to increased hypersensitivity of the right arm and shoulder. Notes some pain and discomfort under the bra line on the right and at about right shoulder. The patient is not wearing a bra secondary to the pain and discomfort associated with wearing a bra strap on her shoulder. She has well healed dried lesions on her shoulder and lateral portion of her arm, which she states were secondary to shingles. Some decreased poultry pinner strength in her right arm. Drops some items at home. Muscle strength in the lower extremities is judged to be 5/5 for the major muscle groups without neurological change. The patient is without significant scoliosis, kyphosis or lordosis. IMPRESSION: 1. Cervical radiculopathy involving the right arm with numbness and tingling, decreased strength in the fingers. 2. Diabetes. 3. Epilepsy history. 4. Asthma. 5. Hypertension. 6. Stomach problems. 7. Emotional problems. 8. History of shingles. 9. Pituitary tumor. 10. Migraine headaches. RECOMMENDATIONS: We discussed treatment options with the patient. Risks and benefits of an epidural steroid injection using fluoroscopy were reviewed. Possible complication of the procedure could include infection, increased muscle soreness, headache, bleeding, worsening pain, no improvement in pain and the [facility] [address] [place] [address] PAIN MANAGEMENT CONSULTATION Name: NAIN SCHMIDT Room #: REG CL Toshia#: [id number] Admission: 03/03/18 Attend Phys: Tj Hernandez MD Discharge: Date of : 71 Report #: [id number] patient elects to proceed. PROCEDURE NOTE: The patient was assisted in getting on the examination table. Her back of her neck was sterilely prepped with a Betadine solution. Fluoroscopy using anterior, posterior as well as lateral viewing were in invoked. Her neck was infiltrated with a 25-gauge needle. A 0.25% bupivacaine was infiltrated. A 17-gauge Tuohy with loss of resistance technique, 5 inch in length was used. A midline/right lateral approach was taken. After appropriate placement, a 0.25% bupivacaine was infiltrated in this area. A total of 120 mg triamcinolone was injected. The patient tolerated the procedure well. There were no complications. She was assisted in getting to the examination room. There were no complications. She remained in the Pain Clinic for an appropriate amount of time. She will follow up in the future as needed. Hopefully, she will continue to note some benefit from this procedure. She will call us if she has any concerns. She will monitor blood sugars. <ELECTRONICALLY SIGNED> By: Tj Hernandez MD 03/13/18 1125 0953 0020 Tj Hernandez MD /nt
[2018-03-03 11:59] VITALS: BP 158/105
== END | disposition home or self-care (01) ==
LOC: PAIN 09:02
DX: M54.12 Radiculopathy, cervical region (principal); G89.29 Other chronic pain; J45.909 Unspecified asthma, uncomplicated; F17.210 Nicotine dependence, cigarettes, uncomplicated; Z87.440 Personal history of urinary (tract) infections; Z91.040 Latex allergy status; Z88.8 Allergy status to other drugs, medicaments and biological substances; Z79.82 Long term (current) use of aspirin; Z79.899 Other long term (current) drug therapy

== ENCOUNTER 2018-04-27 14:56 | Emergency (ER) | payer BC ==
[~2018-04-27] VITALS: Ht 170.2 cm; Wt 163.8 kg
--- NOTE | ~2018-04-27 | EKG ---
[address] [address] ELECTROCARDIOGRAM REPORT Name: NAIN SCHMIDT [id number] Admission: 04/27/18 Attend Phys: Discharge: 04/27/18 Date of : 71 Report #: [id number] THIS REPORT FOR: //name// [facility] ED Test Date: 2018-04-27 Test Time: 17:24:14 Pat Name: NAIN SCHMIDT Department: Room: Gender: F Talent Director: aster : 1975 Requested By: Keila Flores Order Number: [id number] MD: Kulwant Cleveland Measurements Intervals [place] Rate: 84 P: 49 NM: 146 QRS: 3 QRSD: 91 T: 48 QT: 326 QTc: 386 Interpretive Statements Sinus rhythm Borderline T wave abnormalities Compared to ECG 11/14/2017 08:45:28 No significant changes Electronically Signed On 04-28-2018 8:00:01 PARTITION NOTCHER by Kulwant Cleveland [email or web address] <ELECTRONICALLY SIGNED> By: Kulwant Cleveland MD 04/28/18 0800 23 23 Kulwant Cleveland MD /SOL
[2018-04-27 17:24] LABS: URINE BILIRUBIN NEGATIVE (Negative); URINE BLOOD NEGATIVE (Negative); URINE CLARITY CLEAR; URINE COLOR YELLOW; URINE GLUCOSE-RANDOM* NEGATIVE (Negative); URINE KETONES NEGATIVE (Negative); URINE LEUKOCYTES NEGATIVE (Negative); URINE NITRITE NEGATIVE (Negative); URINE PROTEIN (DIPSTICK) NEGATIVE (Negative); URINE SPECIFIC GRAVITY 1.015 (1.005-1.035); URINE UROBILINOGEN 0.2 E.U./dl (0.2-1.0)
[2018-04-27 18:30] LABS: ABSOLUTE NEUTROPHILS 6.1 thou/uL (1.4-8.2); EOSINOPHILS 0.9 % (0.0-3.0); HEMATOCRIT 35.7 % (37.0-47.0); HEMOGLOBIN 11.6 gm/dL (12.0-15.0); LYMPHOCYTES 24.8 % (24.0-44.0); MCH 26.6 pg (26.0-34.0); MCHC 32.4 g/dL (28.0-37.0); MONOCYTES 6.1 % (1.0-8.0); PLATELET COUNT 383 thou/uL (150-400); POLYS 67.2 % (36.0-66.0); RBC 4.35 mil/uL (4.20-5.00); RDW 17.1 % (10.5-14.5)
[2018-04-27 18:38] LABS: CALCIUM 9.9 mg/dL (8.5-10.1); CREATININE 1.2 mg/dL (0.6-1.0); POTASSIUM 3.8 mmol/L (3.5-5.1)
[2018-04-27 18:44] LABS: ALBUMIN 2.9 g/dL (3.4-5.0); MAGNESIUM 1.6 mg/dL (1.8-2.4); TOTAL BILIRUBIN 0.2 mg/dL (<0.1-1.0); TOTAL PROTEIN 7.8 g/dL (6.4-8.2)
[2018-04-27 18:46] LABS: APTT 28.3 Seconds (24.5-32.8); PROTIME 9.5 Seconds (9.3-11.4)
[2018-04-27 20:58] VITALS: BP 119/58
== END 2018-04-27 20:59 | disposition home or self-care (01) ==
LOC: ER 14:56
PROVIDERS: Physician Assistant
DX: R20.2 Paresthesia of skin (principal); R41.0 Disorientation, unspecified; I10 Essential (primary) hypertension; J45.909 Unspecified asthma, uncomplicated; G43.909 Migraine, unspecified, not intractable, without status migrainosus; G40.909 Epilepsy, unspecified, not intractable, without status epilepticus; Z90.710 Acquired absence of both cervix and uterus; Z98.890 Other specified postprocedural states; Z88.1 Allergy status to other antibiotic agents; Z91.040 Latex allergy status; Z88.8 Allergy status to other drugs, medicaments and biological substances

== ENCOUNTER → 2018-09-15 | Outpatient (CLI) | payer OTHER | LOC: MRI 12:07 | DX: M54.14 Radiculopathy, thoracic region (principal); G62.9 Polyneuropathy, unspecified; F41.9 Anxiety disorder, unspecified; F32.9 Major depressive disorder, single episode, unspecified ==

== ENCOUNTER 2019-01-02 21:32 | Emergency (ER) | payer OTHER ==
[~2019-01-02] VITALS: Ht 170.2 cm; Wt 166.9 kg
[2019-01-02] MEDS ORDERED: PROZAC20 MG PO (22:08)
[2019-01-02] MEDS ORDERED: TRAMADOL 50 MG50 MG PO (23:03)
[2019-01-02 23:33] VITALS: BP 129/78
== END 2019-01-02 23:34 | disposition home or self-care (01) ==
LOC: ER 21:32
DX: M94.0 Chondrocostal junction syndrome [Tietze] (principal); R20.2 Paresthesia of skin; I10 Essential (primary) hypertension; J45.909 Unspecified asthma, uncomplicated; Z98.890 Other specified postprocedural states; Z90.710 Acquired absence of both cervix and uterus; G43.909 Migraine, unspecified, not intractable, without status migrainosus; Z88.1 Allergy status to other antibiotic agents; Z88.8 Allergy status to other drugs, medicaments and biological substances; Z91.040 Latex allergy status; Z86.011 Personal history of benign neoplasm of the brain

== ENCOUNTER 2019-02-15 21:14 | Emergency (ER) | payer OTHER ==
[~2019-02-15] VITALS: Ht 170.2 cm; Wt 162.4 kg
[~2019-02-15 21:14] MED LIST changes: +PROZAC20 MG PO; +TRAMADOL 50 MG50 MG PO
[2019-02-15] MEDS ORDERED: VISTARIL 25 MG25 M1 PO (22:08)
[2019-02-15] MEDS ORDERED: ZETIA10 MG PO (22:09)
[2019-02-15] MEDS ORDERED: PROTONIX40 M1 PO (22:10)
[2019-02-15 22:17] LABS: URINE BILIRUBIN NEGATIVE (Negative); URINE BLOOD NEGATIVE (Negative); URINE CLARITY SL CLOUDY; URINE COLOR YELLOW; URINE GLUCOSE-RANDOM* NEGATIVE (Negative); URINE KETONES TRACE (Negative); URINE LEUKOCYTES-REFLEX NEGATIVE (Negative); URINE NITRITE-REFLEX NEGATIVE (Negative); URINE PROTEIN (DIPSTICK) TRACE (Negative); URINE SPECIFIC GRAVITY 1.025 (1.005-1.035); URINE UROBILINOGEN 0.2 E.U./dl (0.2-1.0)
[2019-02-15] MEDS ORDERED: TOPAMAX50 MG PO (22:24)
[2019-02-15] MEDS ORDERED: CHLORTHALIDONE50 MG PO (22:25)
[2019-02-15] MEDS ORDERED: INDERAL 20 MG T20 M1 PO (22:25)
[2019-02-15] MEDS ORDERED: BENTYL 10 MG CA10 M1 PO (22:25)
[2019-02-15] MEDS ORDERED: LATUDA40 MG PO (22:25)
[2019-02-15 22:51] VITALS: BP 142/85
== END 2019-02-15 22:51 | disposition home or self-care (01) ==
LOC: ER 21:14
PROVIDERS: Nurse Practitioner
DX: N76.0 Acute vaginitis (principal); I10 Essential (primary) hypertension; J45.909 Unspecified asthma, uncomplicated; G43.909 Migraine, unspecified, not intractable, without status migrainosus; M54.12 Radiculopathy, cervical region; Z98.890 Other specified postprocedural states; Z90.710 Acquired absence of both cervix and uterus; Z86.011 Personal history of benign neoplasm of the brain; Z88.1 Allergy status to other antibiotic agents; Z91.040 Latex allergy status; Z88.6 Allergy status to analgesic agent; Z88.2 Allergy status to sulfonamides; Z88.8 Allergy status to other drugs, medicaments and biological substances

== ENCOUNTER 2019-03-16 18:51 | Emergency (ER) | payer OTHER ==
[~2019-03-16] VITALS: Ht 170.2 cm; Wt 158.8 kg
[~2019-03-16 18:51] MED LIST changes: +BENTYL 10 MG CA10 M1 PO; +CHLORTHALIDONE50 MG PO; +INDERAL 20 MG T20 M1 PO; +LATUDA40 MG PO; +TOPAMAX50 MG PO; +VISTARIL 25 MG25 M1 PO; +ZETIA10 MG PO
[2019-03-16] MEDS ORDERED: TESSALON PERLE100 MG PO (21:17)
[2019-03-16] MEDS ORDERED: FLONASE 0.05%50 MCG NASAL (21:18)
[2019-03-16 21:28] VITALS: BP 128/80
== END 2019-03-16 21:29 | disposition home or self-care (01) ==
LOC: ER 18:51
DX: J06.9 Acute upper respiratory infection, unspecified (principal); J02.9 Acute pharyngitis, unspecified; I10 Essential (primary) hypertension; J45.909 Unspecified asthma, uncomplicated; G43.909 Migraine, unspecified, not intractable, without status migrainosus; Z90.710 Acquired absence of both cervix and uterus; Z98.890 Other specified postprocedural states; Z86.011 Personal history of benign neoplasm of the brain; Z88.1 Allergy status to other antibiotic agents; Z91.040 Latex allergy status; Z88.6 Allergy status to analgesic agent; Z88.8 Allergy status to other drugs, medicaments and biological substances

== ENCOUNTER 2019-05-15 18:47 | Emergency (ER) | payer OTHER ==
[~2019-05-15] VITALS: Ht 170.2 cm; Wt 158.8 kg
[~2019-05-15 18:47] MED LIST changes: +TESSALON PERLE100 MG PO
[2019-05-15] MEDS ORDERED: NORCO 5-325 TA1 EAC1 PO (20:03)
[2019-05-15 20:10] VITALS: BP 119/59
== END 2019-05-15 20:10 | disposition home or self-care (01) ==
LOC: ER 18:47
DX: M25.572 Pain in left ankle and joints of left foot (principal); M25.472 Effusion, left ankle; I10 Essential (primary) hypertension; J45.909 Unspecified asthma, uncomplicated; G43.909 Migraine, unspecified, not intractable, without status migrainosus; Z98.890 Other specified postprocedural states; Z90.710 Acquired absence of both cervix and uterus; Z91.040 Latex allergy status; Z88.1 Allergy status to other antibiotic agents; Z88.8 Allergy status to other drugs, medicaments and biological substances

== ENCOUNTER 2019-07-31 14:18 | Emergency (ER) | payer OTHER ==
[~2019-07-31] VITALS: Ht 170.2 cm; Wt 158.8 kg
[~2019-07-31 14:18] MED LIST changes: +NORCO 5-325 TA1 EAC1 PO
[2019-07-31 15:14] LABS: ABSOLUTE NEUTROPHILS 6.2 thou/uL (1.4-8.2); BASOPHILS 0.5 % (0.0-2.0); EOSINOPHILS 0.4 % (0.0-3.0); HEMATOCRIT 30.8 % (37.0-47.0); HEMOGLOBIN 9.5 gm/dL (12.0-15.0); MCH 26.1 pg (26.0-34.0); MCHC 30.9 g/dL (28.0-37.0); MCV 84.4 fL (80.0-100.0); MONOCYTES 6.5 % (1.0-8.0); PLATELET COUNT 381 thou/uL (150-400); POLYS 77.6 % (36.0-66.0); RBC 3.65 mil/uL (4.20-5.00); RDW 17.6 % (10.5-14.5)
[2019-07-31 15:16] LABS: CALCIUM 9.3 mg/dL (8.5-10.1); POTASSIUM 3.7 mmol/L (3.5-5.1)
[2019-07-31 15:21] LABS: BE(vivo) 1.6 mmol/L (-2 to +3); PO2 82.2 mmHg (80.0-100.0); pH 7.431 (7.360-7.450); sO2 96.4 % (92.0-98.0)
[2019-07-31] MEDS ORDERED: LEVAQUIN 750 M750 MG PO (15:53)
[2019-07-31 16:25] VITALS: BP 148/92
--- NOTE | 2019-08-01 08:11 | EKG ---
[facility] [place] [address] ELECTROCARDIOGRAM REPORT Name: NAIN SCHMIDT Room #: [facility]P [facility]#: [id number] Admission: 07/31/19 Attend Phys: Discharge: 07/31/19 Date of : 71 Report #: [id number] THIS REPORT FOR: cc: Mackenzie Osuna Beth RNP Lundgren, Craig H. MD [facility] THIS REPORT FOR: //name// [facility] ED Test Date: 2019-07-31 Test Time: 15:06:52 Pat Name: NAIN SCHMIDT Department: Room: Gender: F School Psychologist Assistant: [place] : 1975 Requested By: Elodia Arrieta Order Number: [id number] MD: Jai Jeffers Measurements Intervals [place] Rate: 85 P: 45 TX: 138 QRS: 12 QRSD: 88 T: 116 QT: 411 QTc: 489 Interpretive Statements Sinus rhythm Nonspecific T abnormalities Borderline prolonged QT interval Compared to ECG 04/27/2018 17:24:14 No significant change was found Electronically Signed On 08-01-2019 8:10:44 HOSE TENDER by Jai Jeffers [email or web address] <ELECTRONICALLY SIGNED> By: Jai Jeffers MD, [facility] 08/01/19 0810 1506 1506 Jai Jeffers MD, [facility] /EPI
[2019-08-03] MEDS ORDERED: PROAIR HFA8.5 GM INH (08:54)
[2019-08-03] MEDS ORDERED: LAMICTAL100 MG PO (08:59)
[2019-08-03] MEDS ORDERED: TOPAMAX 25 MG T25 MG PO (09:00)
[2019-08-03] MEDS ORDERED: TRESIBA FL100 UNIT/1 SUBQ ×2 (09:01→09:07)
[2019-08-03] MEDS ORDERED: ABILIFY 2 MG2 M1 PO (09:07)
[2019-08-06] MEDS ORDERED: TRAMADOL 50 MG50 MG PO (15:11)
[2019-08-06] MEDS ORDERED: TRESIBA FL100 UNIT/1 SUBQ (15:16)
[2019-08-06] MEDS ORDERED: NOVOLOG100 UNIT/1 SUBQ (15:16)
[2019-08-06] MEDS ORDERED: LIDOPATCH1 EACH TRANSDERM (15:17)
[2019-08-06] MEDS ORDERED: CORTEF5 MG PO (15:23)
[2019-08-06] MEDS ORDERED: PREDNISONE 10 M10 MG PO (15:26)
[2019-08-06] MEDS ORDERED: LEVAQUIN 750 M750 MG PO (15:29)
== END 2019-07-31 16:25 | disposition home or self-care (01) ==
LOC: ER 14:18
PROVIDERS: Nurse Practitioner
DX: J18.1 Lobar pneumonia, unspecified organism (principal); I10 Essential (primary) hypertension; E66.01 Morbid (severe) obesity due to excess calories; J44.9 Chronic obstructive pulmonary disease, unspecified; G40.909 Epilepsy, unspecified, not intractable, without status epilepticus; G43.909 Migraine, unspecified, not intractable, without status migrainosus; Z90.710 Acquired absence of both cervix and uterus; Z86.018 Personal history of other benign neoplasm; Z79.899 Other long term (current) drug therapy; Z79.82 Long term (current) use of aspirin; Z88.1 Allergy status to other antibiotic agents; Z91.040 Latex allergy status; Z88.8 Allergy status to other drugs, medicaments and biological substances

== ENCOUNTER → 2019-08-27 | Outpatient (CLI) | payer OTHER ==
[~2019-08-27] MED LIST changes: +ABILIFY 2 MG2 M1 PO; +CORTEF5 MG PO; +LAMICTAL100 MG PO; +LEVAQUIN 750 M750 MG PO; +LIDOPATCH1 EACH TRANSDERM; +NYSTATIN100000 UNI SW&SWALLOW; +PREDNISONE 10 M10 MG PO; +PROAIR HFA8.5 GM INH; +TOPAMAX 25 MG T25 MG PO; +TRESIBA FL100 UNIT/1 SUBQ
== END ==
LOC: RAD 11:10
PROVIDERS: ATTEND Nurse Practitioner
DX: J18.9 Pneumonia, unspecified organism (principal)

== ENCOUNTER 2019-10-01 15:14 | Emergency (ER) | payer OTHER ==
[~2019-10-01] VITALS: Ht 170.2 cm; Wt 145.2 kg
[~2019-10-01 15:14] MED LIST changes: -NYSTATIN100000 UNI SW&SWALLOW
[2019-10-01] MEDS ORDERED: NYSTATIN100000 UNI SW&SWALLOW (15:57)
[2019-10-01 16:30] VITALS: BP 116/80
== END 2019-10-01 16:47 | disposition home or self-care (01) ==
LOC: ER 15:14
DX: J02.9 Acute pharyngitis, unspecified (principal); B37.9 Candidiasis, unspecified; H92.03 Otalgia, bilateral; E11.9 Type 2 diabetes mellitus without complications; I10 Essential (primary) hypertension; J44.9 Chronic obstructive pulmonary disease, unspecified; J45.909 Unspecified asthma, uncomplicated; G43.909 Migraine, unspecified, not intractable, without status migrainosus; Z79.899 Other long term (current) drug therapy; Z79.82 Long term (current) use of aspirin; Z88.1 Allergy status to other antibiotic agents; Z88.8 Allergy status to other drugs, medicaments and biological substances; Z91.040 Latex allergy status; Z98.890 Other specified postprocedural states; Z90.710 Acquired absence of both cervix and uterus

== ENCOUNTER 2019-12-04 09:43 | Emergency (ER) | payer OTHER ==
[~2019-12-04] VITALS: Ht 170.2 cm; Wt 149.7 kg
[~2019-12-04 09:43] MED LIST changes: +NYSTATIN100000 UNI SW&SWALLOW
[2019-12-04 10:15] LABS: ANION GAP 5 mmol/L (7-16); BUN 14 mg/dL (7-18); CALCIUM 9.8 mg/dL (8.5-10.1); CHLORIDE 96 mmol/L (98-107); CO2 34 mmol/L (21-32); CREATININE 1.1 mg/dL (0.6-1.0); GLUCOSE 237 mg/dL (74-106); POTASSIUM 3.1 mmol/L (3.5-5.1); SODIUM 135 mmol/L (136-145)
[2019-12-04 10:19] LABS: ABSOLUTE NEUTROPHILS 3.7 thou/uL (1.4-8.2); BASOPHILS 0.8 % (0.0-2.0); EOSINOPHILS 3.4 % (0.0-3.0); HEMATOCRIT 34.6 % (37.0-47.0); HEMOGLOBIN 11.6 gm/dL (12.0-15.0); LYMPHOCYTES 33.5 % (24.0-44.0); MCH 27.3 pg (26.0-34.0); MCHC 33.4 g/dL (28.0-37.0); MCV 81.7 fL (80.0-100.0); MONOCYTES 9.4 % (1.0-8.0); PLATELET COUNT 388 thou/uL (150-400); POLYS 52.9 % (36.0-66.0); RBC 4.24 mil/uL (4.20-5.00); WBC 6.9 thou/uL (4.0-11.0)
[2019-12-04 10:24] LABS: LIPASE 114 U/L (73-393); TROPONIN-I <0.06 ng/mL (<0.06)
[2019-12-04 11:12] LABS: URINE BILIRUBIN NEGATIVE (Negative); URINE BLOOD NEGATIVE (Negative); URINE CLARITY CLEAR; URINE COLOR YELLOW; URINE GLUCOSE-RANDOM* 3+ (Negative); URINE KETONES NEGATIVE (Negative); URINE LEUKOCYTES-REFLEX NEGATIVE (Negative); URINE NITRITE-REFLEX NEGATIVE (Negative); URINE PROTEIN (DIPSTICK) NEGATIVE (Negative); URINE UROBILINOGEN 0.2 E.U./dl (0.2-1.0)
[2019-12-04 12:45] VITALS: BP 122/88
--- NOTE | 2019-12-04 15:41 | EKG ---
[facility] [place] [address] ELECTROCARDIOGRAM REPORT Name: NAIN SCHMIDT Room #: DEP [facility]#: [id number] Admission: 12/04/19 Attend Phys: Discharge: 12/04/19 Date of : 71 Report #: [id number] THIS REPORT FOR: cc: Mackenzie Osuna Beth RNP Lundgren, Craig H. MD [facility] THIS REPORT FOR: //name// [facility] ED Test Date: 2019-12-04 Test Time: 10:52:35 Pat Name: NAIN SCHMIDT Department: Room: Gender: F Educational Interpreter: [facility] : 1975 Requested By: Claudy Lee Order Number: [id number] MD: Jai Jeffers Measurements Intervals [place] Rate: 74 P: 45 IA: 140 QRS: -1 QRSD: 99 T: 45 QT: 406 QTc: 451 Interpretive Statements Sinus rhythm Borderline T wave abnormalities Compared to ECG 07/31/2019 15:06:52 No significant changes Electronically Signed On 12-04-2019 15:40:54 CDT by Jai Jeffers [email or web address] <ELECTRONICALLY SIGNED> By: Jai Jeffers MD, [facility] 12/04/19 1540 1052 1052 Jai Jeffers MD, [facility] /EPI
== END 2019-12-04 12:45 | disposition home or self-care (01) ==
LOC: ER 09:43
PROVIDERS: Emergency Medicine
DX: M54.5 Low back pain (principal); M54.2 Cervicalgia; R10.84 Generalized abdominal pain; J45.909 Unspecified asthma, uncomplicated; I10 Essential (primary) hypertension; G43.909 Migraine, unspecified, not intractable, without status migrainosus; Z90.710 Acquired absence of both cervix and uterus; Z79.899 Other long term (current) drug therapy; Z79.4 Long term (current) use of insulin; Z79.82 Long term (current) use of aspirin; Z88.1 Allergy status to other antibiotic agents; Z88.8 Allergy status to other drugs, medicaments and biological substances; Z91.040 Latex allergy status; V89.2XXA Person injured in unspecified motor-vehicle accident, traffic, initial encounter; Y93.89 Activity, other specified; Y92.89 Other specified places as the place of occurrence of the external cause; Y99.8 Other external cause status

== ENCOUNTER 2019-12-31 17:33 | Emergency (ER) | payer OTHER ==
[~2019-12-31] VITALS: Ht 170.2 cm; Wt 148.3 kg
[2019-12-31] MEDS ORDERED: IBUPROFEN 600600 M1 PO (20:04)
[2019-12-31] MEDS ORDERED: CYCLOBENZAPRINE5 MG PO (20:04)
[2019-12-31 20:26] VITALS: BP 137/82
== END 2019-12-31 20:26 | disposition home or self-care (01) ==
LOC: ER 17:33
DX: B37.9 Candidiasis, unspecified (principal); M54.5 Low back pain; R07.81 Pleurodynia; I10 Essential (primary) hypertension; J45.909 Unspecified asthma, uncomplicated; G43.909 Migraine, unspecified, not intractable, without status migrainosus; Z90.710 Acquired absence of both cervix and uterus; Z79.899 Other long term (current) drug therapy; Z88.8 Allergy status to other drugs, medicaments and biological substances; Z88.1 Allergy status to other antibiotic agents; Z91.040 Latex allergy status; W10.9XXA Fall (on) (from) unspecified stairs and steps, initial encounter; Y93.89 Activity, other specified; Y92.89 Other specified places as the place of occurrence of the external cause; Y99.8 Other external cause status

== ENCOUNTER 2020-08-23 09:14 | Emergency (ER) | payer OTHER ==
[~2020-08-23] VITALS: Ht 170.2 cm; Wt 146.5 kg
[~2020-08-23 09:14] MED LIST changes: +CYCLOBENZAPRINE5 MG PO
[2020-08-23 10:53] LABS: URINE BILIRUBIN NEGATIVE (Negative); URINE BLOOD NEGATIVE (Negative); URINE CLARITY CLEAR; URINE COLOR YELLOW; URINE GLUCOSE-RANDOM* 3+ (Negative); URINE KETONES NEGATIVE (Negative); URINE LEUKOCYTES-REFLEX NEGATIVE (Negative); URINE NITRITE-REFLEX NEGATIVE (Negative); URINE PROTEIN (DIPSTICK) NEGATIVE (Negative); URINE SPECIFIC GRAVITY 1.025 (1.005-1.035); URINE UROBILINOGEN 0.2 E.U./dl (0.2-1.0)
[2020-08-23 11:30] LABS: ABSOLUTE NEUTROPHILS 3.2 thou/uL (1.4-8.2); BASOPHILS 0.6 % (0.0-2.0); EOSINOPHILS 2.1 % (0.0-3.0); HEMATOCRIT 34.4 % (37.0-47.0); HEMOGLOBIN 11.1 gm/dL (12.0-15.0); LYMPHOCYTES 35.6 % (24.0-44.0); MCH 28.5 pg (26.0-34.0); MCHC 32.4 g/dL (28.0-37.0); MONOCYTES 9.1 % (1.0-8.0); PLATELET COUNT 316 thou/uL (150-400); POLYS 52.6 % (36.0-66.0); RBC 3.91 mil/uL (4.20-5.00); RDW 15.3 % (10.5-14.5); WBC 6.1 thou/uL (4.0-11.0)
[2020-08-23 11:33] LABS: ANION GAP 7 mmol/L (7-16); BUN 10 mg/dL (7-18); CALCIUM 9.1 mg/dL (8.5-10.1); CHLORIDE 102 mmol/L (98-107); CO2 29 mmol/L (21-32); GLUCOSE 285 mg/dL (74-106); POTASSIUM 4.4 mmol/L (3.5-5.1); SODIUM 138 mmol/L (136-145)
[2020-08-23 11:45] LABS: ALBUMIN 2.7 g/dL (3.4-5.0); AMYLASE 39 U/L (25-115); DIRECT BILIRUBIN < 0.1 mg/dL (<0.1-0.2); LIPASE 99 U/L (73-393); MAGNESIUM 1.6 mg/dL (1.8-2.4); PHOSPHORUS 3.2 mg/dL (2.5-4.9); SGOT 11 U/L (15-37); SGPT 37 U/L (30-65); TOTAL BILIRUBIN 0.3 mg/dL (0.2-1.0); TOTAL PROTEIN 6.9 g/dL (6.4-8.2); TROPONIN-I <0.06 ng/mL (<0.06)
[2020-08-23] MEDS ORDERED: TYLENOL325 M1 PO (12:24)
[2020-08-23] MEDS ORDERED: COMPAZINE10 M2 PO (12:24)
[2020-08-23 12:41] VITALS: BP 165/102
--- NOTE | 2020-08-24 11:28 | EKG ---
[address] [address] ELECTROCARDIOGRAM REPORT Name: NAIN SCHMIDT Room #: DEP [facility] [id number] Admission: 08/23/20 Attend Phys: Discharge: 08/23/20 Date of : 71 Report #: [id number] [facility] ED Test Date: 2020-08-23 Test Time: 10:54:53 Pat Name: NAIN SCHMIDT Department: Room: Gender: F Fish Butcher: JCELAINA : 1975 Requested By: Chester Harper Order Number: [id number] MD: Porfirio Castañeda Measurements Intervals [place] Rate: 57 P: 37 IA: 159 QRS: 2 QRSD: 89 T: 4 QT: 436 QTc: 425 Interpretive Statements Sinus rhythm Compared to ECG 12/04/2019 10:52:35 T-wave abnormality no longer present Electronically Signed On 08-24-2020 11:28:23 CDT by Porfirio Castañeda [email or web address] <ELECTRONICALLY SIGNED> By: Porfirio Csatañeda MD, [facility] 08/24/20 1128 1054 1054 Porfirio Castañeda MD, [facility] /EPI
== END 2020-08-23 12:50 | disposition home or self-care (01) ==
LOC: ER 09:14
PROVIDERS: Emergency Medicine
DX: G43.909 Migraine, unspecified, not intractable, without status migrainosus (principal); E11.65 Type 2 diabetes mellitus with hyperglycemia; I10 Essential (primary) hypertension; J45.909 Unspecified asthma, uncomplicated; Z90.710 Acquired absence of both cervix and uterus; Z79.4 Long term (current) use of insulin; Z79.899 Other long term (current) drug therapy; Z88.1 Allergy status to other antibiotic agents; Z88.8 Allergy status to other drugs, medicaments and biological substances; Z91.040 Latex allergy status

== ENCOUNTER → 2020-09-29 | Outpatient (CLI) | payer BC ==
[~2020-09-29] MED LIST changes: +COMPAZINE10 M2 PO; +TYLENOL325 M1 PO
== END ==
LOC: RAD 14:21
PROVIDERS: ATTEND Nurse Practitioner
DX: Z12.31 Encounter for screening mammogram for malignant neoplasm of breast (principal)

== ENCOUNTER → 2020-10-28 | Outpatient (CLI) | payer BC | LOC: RAD 10-20 15:18 → ULTRA 09:50 | PROVIDERS: ATTEND Family Medicine | DX: K76.0 Fatty (change of) liver, not elsewhere classified (principal); K80.20 Calculus of gallbladder without cholecystitis without obstruction; R94.5 Abnormal results of liver function studies ==

== ENCOUNTER → 2021-04-20 | Outpatient (CLI) | payer OTHER | LOC: CAT 15:46 | PROVIDERS: ATTEND Nurse Practitioner | DX: Z13.6 Encounter for screening for cardiovascular disorders (principal); I25.10 Atherosclerotic heart disease of native coronary artery without angina pectoris; E78.00 Pure hypercholesterolemia, unspecified ==

== ENCOUNTER 2021-05-13 11:18 | Emergency (ER) | payer BC ==
[~2021-05-13] VITALS: Ht 170.2 cm; Wt 145.2 kg
[2021-05-13 13:02] LABS: ABSOLUTE NEUTROPHILS 3.8 thou/uL (1.4-8.2); BASOPHILS 0.6 % (0.0-2.0); EOSINOPHILS 0.9 % (0.0-3.0); HEMATOCRIT 36.3 % (37.0-47.0); HEMOGLOBIN 11.8 gm/dL (12.0-15.0); LYMPHOCYTES 25.7 % (24.0-44.0); MCH 28.4 pg (26.0-34.0); MCHC 32.4 g/dL (28.0-37.0); MCV 87.8 fL (80.0-100.0); MONOCYTES 7.9 % (1.0-8.0); PLATELET COUNT 353 thou/uL (150-400); POLYS 64.9 % (36.0-66.0); RBC 4.14 mil/uL (4.20-5.00); RDW 15.2 % (10.5-14.5); WBC 5.9 thou/uL (4.0-11.0)
[2021-05-13 13:11] LABS: CALCIUM 9.1 mg/dL (8.5-10.1); CREATININE 0.8 mg/dL (0.6-1.0); POTASSIUM 3.5 mmol/L (3.5-5.1)
[2021-05-13 13:17] LABS: ALBUMIN 2.8 g/dL (3.4-5.0); TOTAL BILIRUBIN 1.7 mg/dL (0.2-1.0); TOTAL PROTEIN 7.4 g/dL (6.4-8.2)
[2021-05-13] MEDS ORDERED: NAPROSYN500 MG PO (14:16)
[2021-05-13] MEDS ORDERED: APAP W/CODEINE1 TA2 PO (14:16)
[2021-05-13 14:51] VITALS: BP 165/74
== END 2021-05-13 14:54 | disposition home or self-care (01) ==
LOC: ER 11:18
PROVIDERS: Emergency Medicine
DX: N21.0 Calculus in bladder (principal); G40.909 Epilepsy, unspecified, not intractable, without status epilepticus; I10 Essential (primary) hypertension; J45.909 Unspecified asthma, uncomplicated; F41.9 Anxiety disorder, unspecified; G43.909 Migraine, unspecified, not intractable, without status migrainosus; Z90.710 Acquired absence of both cervix and uterus; Z98.890 Other specified postprocedural states; Z79.4 Long term (current) use of insulin; Z79.82 Long term (current) use of aspirin; Z79.891 Long term (current) use of opiate analgesic; Z79.899 Other long term (current) drug therapy; Z88.0 Allergy status to penicillin; Z88.1 Allergy status to other antibiotic agents; Z88.6 Allergy status to analgesic agent; Z88.8 Allergy status to other drugs, medicaments and biological substances; Z91.040 Latex allergy status

== ENCOUNTER → 2021-07-22 | Outpatient (CLI) | payer BC ==
[~2021-07-22] MED LIST changes: +APAP W/CODEINE1 TA2 PO
== END ==
LOC: ULTRA 11:20
PROVIDERS: ATTEND Nurse Practitioner
DX: M25.461 Effusion, right knee (principal); M79.89 Other specified soft tissue disorders